=== PATIENT | female | born 1985 | race Caucasian/White ===

== ENCOUNTER 2019-11-04 09:27 | Inpatient (IN) | payer OTHER ==
[~2019-11-04] VITALS: Ht 152.4 cm; Wt 52.6 kg
--- NOTE | ~2019-11-04 | OP ---
PATIENT NAME: JESUS GUNN MEDICAL RECORD: [id number] :84 LOCATION:[id number] ADMISSION DATE:11/16/19 SURGEON: ABDON HUNT MD DATE OF OPERATION: 11/16/2019 PREOPERATIVE DIAGNOSES: 1. at 39 weeks' gestation. 2. History of prior section. 3. Advanced maternal age. POSTOPERATIVE DIAGNOSES: 1. at 39 weeks' gestation. 2. History of prior section. 3. Advanced maternal age. 4. Bladder rupture. PROCEDURES: 1. Repeat low transverse section. 2. Repair of bladder rupture. SURGEON: Abdon Hunt MD TANK BUILDER SUPERVISOR: Aurora Arredondo. ANESTHESIOLOGIST: Omega Capellan MD ANESTHETIC: Spinal. FINDINGS: Viable male infant, vertex presentation, Apgars 8 and 9, weight 3169 g. Tubes and ovaries are unremarkable. Bladder is densely adhered to the lower uterine segment. Bladder mucosa is unremarkable. SPECIMEN REMOVED: Placenta. SPECIMEN DISPOSITION: Discarded. ESTIMATED BLOOD LOSS: 750 mL. FLUIDS: 3 L of lactated Ringer's. URINE OUTPUT: 250 mL of urine prior to cystotomy. DRAINS: Johnson to gravity. COMPLICATIONS: Bladder rupture with repair. INDICATION FOR PROCEDURE: The patient is a 34-year-old G6, para 4 with 4 prior deliveries who presents to labor and delivery at 39 weeks for repeat . Risks and benefits have been described and the patient wishes to proceed. DESCRIPTION OF PROCEDURE: After informed consent is assured, the patient is taken to the operating room where anesthetic is obtained without difficulty. The patient is now prepped and draped in the usual sterile fashion. After the assessment of the anesthetic is found to be adequate, a low transverse incision OPERATIVE REPORT [id number] HEADINGJESUS Waite is made over the old scar, carried down to the underlying layer of the fascia, which is opened in the midline. The fascial opening is extended laterally. Rectus bellies are dissected free superiorly and inferiorly and then in the midline. After the peritoneum is entered and the lower segment is visualized, bladder is noted to be densely adhered to the lower uterine segment. A flap is attempted to be performed and due to the extreme adhesions abandoned. A DeLee all-purpose retractor is inserted to hold the bladder dome free of the incision. An incision site is selected 1.5 to 2 cm above the margin of the bladder adhesion to the uterus. Once the uterus is entered and the incision is extended, bag is ruptured and noted to be clear fluid. Infant is delivered out of the abdomen atraumatically. The cord is doubly clamped and cut and the infant passed to the attendant. The placenta is now removed via Crede maneuver and the uterus exteriorized, cleared of all clot and debris. Upon inspection, it appears apparent there is a large rent across the dome of the bladder. The Johnson catheter is identified. The bladder is irrigated and blood and clot removed. The hysterotomy is closed with a running stitch of chromic. Once this is performed, attention is now directed to the bladder. Further adhesions of the right and left side are taken down. The mucosa is examined and grasped. The internal margins of the bladder inspected and found to be intact. The mucosa is now closed with a running stitch of chromic. This is a horizontal mattress stitch. Once the mucosa has been reapproximated, the serosa is now closed in a similar manner. At this time using 3-0 Vicryl, a horizontal mattress is run across. There is noted to be a small rent on the right margin. This rent is approximately 1 to 1.5 cm traveling from cephalad caudally. This is closed with a separate chromic and Vicryl. A 240 mL of sterile milk solution is now placed into the bladder. The bladder is noted to be watertight with no extravasation of distention media. The Johnson catheter is now hooked back up and no draining has occurred. A Johnson is now irrigated and the bladder drains freely. Sheree is applied over the lower hysterotomy. The uterus has been returned to the abdomen. Rectus bellies are reapproximated in the midline with a loose stitch of chromic. The fascia is now closed with a running stitch of Vicryl. The sponge, lap, needle counts are correct times 2. The skin is now reapproximated with subcuticular stitch and a sterile dressing applied. Johnson catheter will remain in place for a minimum of 7 days. The patient went to the recovery area and infant to the nursery. NTS:[id number] Voice Confirmation ID: [id number] DOCUMENT ID: [id number] ABDON HUNT MD CC: [id number] DICTATION DATE: 11/16/19909 LICENSED OCCUPATIONAL THERAPIST: 11/16/192001 ADM IN [facility] [address] [id number]
[2019-11-13 11:42] LABS: BASOPHILS 0 % (0-2); EOSINOPHILS 0 % (0-7); HEMATOCRIT 42.8 % (36.0-48.0); HEMOGLOBIN 14.9 g/dL (12-16); IMMATURE GRANULOCYTES 0.3 % (0-5); MCH 34.2 pg (26.0-34.0); MCHC 34.8 g/dL (31.0-37.0); MCV 98.2 fL (80.0-100.0); MEAN PLATELET VOLUME 10.8 fL (7.4-10.4); MONOCYTES 3.3 % (2-11); NEUTROPHILS 79.4 % (40-80); PLATELET COUNT 113 10x3/uL (130-400); RBC 4.36 10x6/uL (4.00-5.40); RDW 13.3 % (11.5-14.5); WBC 3.6 10x3/uL (4.8-10.8)
[2019-11-14 07:14] LABS: RAPID PLASMA REAGIN Non Reactive (Non Reactive)
[2019-11-16] VITALS (11 sets, daily range): BP systolic 89–124; BP diastolic 58–74; Ht 152.4 cm; Wt 52.6 kg
--- NOTE | 2019-11-16 09:32 | NUR ---
RECEIVED PT FROM VIA BED TO ROOM 1274. BED LOCKED AND PLACED IN LOW POSITION. PT AWAKE. AAO X 3. VSS. HRRR WITHOUT AUDIBLE MURMUR. BBS CLEAR. BS X 4. ABDOMEN SOFT/NON-DISTENDED. FUNDUS FIRM AT U/U. RUBRA LOCHIA SMALL AMT. NO CLOTS EXPRESSED. PERIPADS CHANGED. ABDOMINAL INCISION WITH DERMABOND. NO REDNESS, SWELLING OR DRAINAGE NOTED. NEG HOMANS' SIGN. PPP. NO EDEMA NOTED TO BLE. SCDS ON BLE. PUMP ON. TUCKER TO GRAVITY DRAINING BLOODY URINE. PT STATES DR HUNT DISCUSSED KEEPING TUCKER IN FOR EXTENDED PERIOD OF TIME AFTER GOING. SR UP X 2. CALL LIGHT IN REACH.
[2019-11-16 10:18] LABS: BILIRUBIN NEGATIVE (NEGATIVE); KETONE SMALL mg/dL (NEGATIVE); NITRITE NEGATIVE (NEGATIVE); UROBILINOGEN NORMAL mg/dL (< 2)
[2019-11-16 10:20] LABS: EPITHELIAL CELLS 0-5 /hpf (0-5); WHITE CELLS - URINE 0-5 HPF (0-4)
[2019-11-16 10:21] LABS: BACTERIA 2 HPF (NONE SEEN)
--- NOTE | 2019-11-16 10:38 | NUR ---
PT SITTING UP IN BED. TALKING ON PHONE. FUNDUS FIRM AT U/U. RUBRA LOCHIA SMALL AMT. INCISION WITHOUT REDNESS, SWELLING OR DRAINAGE NOTED. ICE PACK TO INCISION. PT DENIES PAIN. STATES ABLE TO WIGGLE RIGHT FOOT. VSS. SO AT BEDSIDE.
--- NOTE | 2019-11-16 10:55 | NUR ---
PT SITTING UP IN BED. STATES C/O GAS PAIN. STATES "I HAVE THIS EVERY TIME". STATES "I THINK IT'S WORSE THAN THE INCISION PAIN". MYLICON 80 MG GIVEN PO ORDERED.
--- NOTE | 2019-11-16 11:40 | NUR ---
PT C/O PAIN OF "2" ON 0-10 PAIN SCALE. TORADOL 30 MG GIVEN SIVP OVER 2 MINUTES. PT INSTRUCTED ON MED. VERBALIZES UNDERSTANDING.
--- NOTE | 2019-11-16 12:23 | NUR ---
CLEAR LIQUID DIET SERVED. PT DENIES FURTHER PAIN. STATES PAIN MED RELIEVING PAIN. DENIES C/O OR NEEDS.
--- NOTE | 2019-11-16 13:30 | NUR ---
DR HUNT TO PT ROOM FOR ROUNDING, GIVES ORDER TO ADVANCE PT TO REGULAR DIET AND PO MEDS IF ABLE TO TOLERATE. WILL NOTIFY PRIMARY RN.
--- NOTE | 2019-11-16 13:30 | NUR ---
FUNDUS FIRM AT U/U. RUBRA LOCHIA MOD AMT. NO CLOTS NOTED. PERIPADS CHANGED. FRESH ICE PACK TO INCISION. INCISION WITHOUT REDNESS, SWELLING OR DRAINAGE NOTED. REGULAR DIET SERVED. PT DENIES NAUSEA.
--- NOTE | 2019-11-16 13:40 | NUR ---
PT C/O INCISIONAL PAIN/CRAMPING OF "6-7" ON 0-10 PAIN SCALE. PERCOCET 10/325 GIVEN PO ORDERED. PT PROVIDED CRACKERS. INSTRUCTED ON MED. VERBALIZES UNDERSTANDING.
--- NOTE | 2019-11-16 14:10 | NUR ---
INTRODUCED SELF TO PT. NURSE TO PROVIDE CARE FOR PT. AFTER TRANSFER TO ROOM 1257. DISCUSSED CONTINUED PLAN OF CARE WITH PT. AND SIGNIFICANT OTHER AT BEDSIDE. PT. WITH LR INFUSING IN 20 G. IV CATH IN RIGHT ARM. NO SIGNS OF INFILTRATION NOTED AT THIS TIME. SALINE LOCKED IV FOR TRANSFER TO NEW ROOM. PT. TRANSFERRED VIA BED TO ROOM 1257. SIGNIFICANT OTHER ASSISTED WITH TRANSFERRING AND BELONGINGS TO NEW ROOM.
--- NOTE | 2019-11-16 14:25 | NUR ---
PT. FINISHED EATING LUNCH TRAY AT THIS TIME. INITIAL ASSESSMENT COMPLETED. SEE FLOWSHEET. FUNDUS FIRM, MIDLINE, U/1 WITH MODERATE LOCHIA RUBRA NOTED AT THIS TIME. BOWEL SOUNDS ACTIVE X 4. PT. DENIES ANY NAUSEA AT THIS TIME AND IS TOLERATING REGULAR DIET AND ORAL PAIN MEDICATION ORDERED. RESTARTED PT.'S IV WITH LR AT 100 ML/HR THROUGH 20G. IV IN RIGHT ARM. BREATH SOUNDS CLEAR. PT. REINSTRUCTED REGARDING T/C/DB EVERY 2 HOURS AND INCENTIVE SPIROMETER USE. PT. VERBALIZES UNDERSTANDING. 16 FR. TUCKER CATH INTACT AND DRAINING BLOODY URINE INTO BAG. REPORT RECEIVED THAT PT. WILL BE DISCHARGED HOME WITH LEG BAG MOST LIKELY. PT. REMAINS AAOX3. WILL CONT. TO MONITOR.
--- NOTE | 2019-11-16 15:46 | NUR ---
ANCEF 2 GM INFUSION COMPLETE. IV SALINE LOCKED AT THIS TIME ORDERED.
--- NOTE | 2019-11-16 17:35 | NUR ---
PT SITTING UP IN BED. C/O ABDOMINAL CRAMPING. TORADOL 10 MG AND PERCOCET 10/325 GIVEN PO ORDERED. PT ALSO GIVEN MYLICON 80 MG CHEW TAB PO ORDERED. I/O COMPLETED.
--- NOTE | 2019-11-16 18:11 | NUR ---
PT OOB AND AMB TO BR. PANTIES AND PAD ON. PT AMBULATES IN ROOM AT THIS TIME. STATES TOLERATING ACTIVITY WELL.
--- NOTE | 2019-11-16 19:20 | NUR ---
SHIFT ASSESSMENT COMPLETED, SEE FLOWSHEET.
--- NOTE | 2019-11-16 19:30 | NUR ---
PT SITTING UP IN BED, SANDWICH TRAY,JELLO AND FRESH ICE WATER PROVIDED TO PATIENT, COFFEE PROVIDED TO FOB. BED LOCKED IN LOW POSITION, SIDE RAILS UPX2, CALL LYNN AND TRAY TABLE IN REACH. NO FURTHER NEEDS IDENTIFIED. WILL CONTINUE TO MONITOR.
--- NOTE | 2019-11-16 20:56 | NUR ---
PATIENT LYING IN BED WITH EYES CLOSED, EASILY AROUSED TO VERBAL STIMULI. PT DENIES NEEDS. WILL CONTINUE TO MONITOR
--- NOTE | 2019-11-16 21:50 | NUR ---
PT LYING IN BED, DENIES NEEDS. SIGNIFICANT OTHER REMAINS AT BEDSIDE FOR SUPPORT. WILL CONTINUE TO MONITOR.
--- NOTE | 2019-11-16 23:35 | NUR ---
ANCEF 2GRAMS IVPB STARTED VIA ALARIS PUMP AT THIS TIME PER MD ORDERS. ICE WATER PROVIDED FOR PATIENT PER REQUEST. NO FURTHER NEEDS IDENTIFIED. WILL CONTINUE TO MONITOR.
[2019-11-17 00:30] VITALS: BP 96/43
--- NOTE | 2019-11-17 00:30 | NUR ---
MEDICATIONS ADMINISTERED PER MD ORDERS SEE EMAR
--- NOTE | 2019-11-17 00:35 | NUR ---
PT RESTING QUIETLY WITH EYES CLOSED. IV FLUSHED WITH 10ML NS AND SALINE LOCKED. VITAL SIGNS TAKEN, ICE WATER PROVIDED. NO FURTHER NEEDS IDENTIFIED. WILL CONTINUE TO MONITOR.
--- NOTE | 2019-11-17 02:30 | NUR ---
PT RESTING QUIETLY, NO NEEDS IDENTIFIED. WILL CONTINUE TO MONITOR.
--- NOTE | 2019-11-17 04:22 | NUR ---
ADMINISTERED PERCOCET 10/325MG AND SIMETHICONE 80 MG PO PER PT REQUEST AND MD ORDERS. SEE EMAR
[2019-11-17 06:16] LABS: HEMATOCRIT 33.5 % (36.0-48.0); MCH 32.4 pg (26.0-34.0); MCHC 32.8 g/dL (31.0-37.0); MCV 98.5 fL (80.0-100.0); MEAN PLATELET VOLUME 10.4 fL (7.4-10.4); RBC 3.4 10x6/uL (4.00-5.40); RDW 13.4 % (11.5-14.5); WBC 5.3 10x3/uL (4.8-10.8)
[2019-11-17 07:30] VITALS: BP 100/53
--- NOTE | 2019-11-17 07:30 | NUR ---
PT SITTING UP IN HIGH HANNA'S POSITION. AAO X 3. VSS. HRRR WITHOUT AUDIBLE MURMUR. BBS CLEAR. BS X 4. ABDOMEN SOFT/SLIGHTLY DISTENDED. PT STATES PASSING VERY LITTLE GAS. FUNDUS FIRM AT U/U. RUBRA LOCHIA SMALL AMT. NO CLOTS OR HEAVY BLEEDING PER PT STATES. ABDOMINAL INCISION WITH DERMABOND WITHOUT REDNESS, SWELLING OR DRAINAGE NOTED. NEG HOMANS' SIGN. PPP. NO EDEMA NOTED TO BLE. SL TO LEFT AND RIGHT FOREARMS. SITES CLEAR. PT STATES MILD PAIN. DENIES NEED FOR FURTHER PAIN MEDICATION. REQUESTS AND RECEIVES ICE WATER. TUCKER TO GRAVITY DRAINING BLOODY URINE. SR UP X 2. CALL LIGHT IN REACH.
--- NOTE | 2019-11-17 07:44 | NUR ---
DR HUTN VISITS WITH PT. STATES MAY DC PT THIS AFTERNOON.
--- NOTE | 2019-11-17 08:59 | NUR ---
PT IN BATHROOM. DENIES C/O PAIN OR NEEDS.
[2019-11-17] MEDS ORDERED: PERCOCET 7.5/321 TAB PO (11:09)
[2019-11-17] MEDS ORDERED: IBUPROFEN800 MG PO (11:10)
[2019-11-17 13:35] VITALS: BP 104/56
--- NOTE | 2019-11-17 13:37 | NUR ---
PT SITTING UP IN BED. STATES FEELING SOME BETTER. VSS. DENIES HEAVY BLEEDING OR PASSING CLOTS. STATES PASSING GAS NOW. DENIES BM YET. STATES PLANS ON STAYING UNTIL TOMORROW. DENIES NEEDS AT THIS TIME.
--- NOTE | 2019-11-17 16:00 | NUR ---
PT INSTRUCTED ON TUCKER CATH CARE. VERBALIZES UNDERSTANDING. 1550 ML OF BLOOD-TINGED URINE EMPTIED FROM BAG.
--- NOTE | 2019-11-17 16:23 | NUR ---
PT C/O H/A AND GAS PAIN OF "5-6" ON 0-10 PAIN SCALE. PERCOCET 10/325 AND MYLICON CHEW TAB 80 MG GIVEN PO ORDERED. INSTRUCTED ON MEDS. VERBALIZES UNDERSTANDING.
--- NOTE | 2019-11-17 19:15 | NUR ---
REPORT GIVEN BY MALINI STERLING
[2019-11-17 20:00] VITALS: BP 109/34
--- NOTE | 2019-11-17 20:15 | NUR ---
ASSESSMENT COMPLETED. PT IS SITTING UP IN BED TRYING TO FEED THE BABY. PT HAS NO PAIN C/O AT THIS TIME. SHE HAS BEEN UP WALKING IN HER ROOM. HEART SOUNDS REGULAR, LUNGS SOUND CLEAR, BOWEL SOUNDS HEARD. FUNDUS IS FIRM. BONDING WELL WITH THE BABY WELL THE FATHER. THE IV IN THE LEFT FORARM WAS REMOVED. PT STILL HAS A SL IN THE RIGHT WRIST AREA. SHE HAS NO C/O OR NEEDS AT THIS TIME AFTER SHE GOT A FRESH GLASS OF WATER. CALL LIGHT NEAR, SIDERAILS UP, AND IS AT BEDSIDE
--- NOTE | 2019-11-17 21:00 | NUR ---
PT RESTING WELL. TOWELS WERE TAKEN TO THE ROOM PER REQUEST.
--- NOTE | 2019-11-17 22:00 | NUR ---
PT HOLDING BABY. SHE ASKED FOR A CUP OF GRAPE JUICE THAT WAS DELIVERED TO HER. SHE SAYS THAT SHE IS IN A LITTLE BIT OF PAIN BUT SHE WILL CALL WHEN SHE WANTS PAIN MEDS.
--- NOTE | 2019-11-18 00:04 | NUR ---
PT C/O PAIN. SHE HAD TORADOL SCHEDULED AND SHE GOT A PERCOCET 10 BOTH PO. NO OTHER C/O AND NO NEEDS AT THIS TIME.
--- NOTE | 2019-11-18 02:00 | NUR ---
PT IS RESTING QUIETLYL IN BED HOLDING HER BABY.
--- NOTE | 2019-11-18 03:04 | NUR ---
PT CALL LIGHT WENT OFF BY ACCIDENT. SHE HAS NO C/O OR NEEDS NOW
--- NOTE | 2019-11-18 04:00 | NUR ---
PT IS IN BED SLEEPING.
--- NOTE | 2019-11-18 06:06 | NUR ---
PT IS SITTING UP HOLDING THE BABY. SHE WAS GIVEN HER SCHEDULED TORADOL AND SHE REQUESTED PAIN MEDS MOSTLY FOR A HEADACHE. SHE RATES HER PAIN A 5. 800 ML EMPTIED OUT OF HER TUCKER CATHETER. IT WAS A BLOOD TINGED DARK DIANA COLOR WITH A STRONG ODOR. PT HAS NOT SLEPT MUCH TONIGHT.
--- NOTE | 2019-11-18 07:00 | NUR ---
REPORT RECEIVED FROM Maryuri FALL RN.
--- NOTE | 2019-11-18 08:25 | NUR ---
TO ROOM FOR ASSESSMENT. PT SITTING UP IN CHAIR. PT AMBULATED TO BED WITHOUT DIFFICULTY FOR ASSESSMENT. LUNGS CLEAR BILAT. FUNDUS FIRM AT UMBILICUS, MIDLINE. INCISION IS CDI WITH DERMABOND. LOCHIA IS SMALL/SCANT AND RUBRA. BOWEL SOUNDS PRESENT X4. PT STATES SHE HAS BEEN PASSING GAS. TUCKER CATHETER DRAINING LIGHT, CLEAR URINE TO GRAVITY WITHOUT DIFFICULTY. LINE IS SECURED TO RIGHT LEG WITHOUT KINKS IN TUBING, TUCKER BAG SECURED TO BED BELOW BLADDER. PT. C/O HEADACHE, BUT STATES SHE "GETS HEADACHES AFTER ALL MY C-SECTIONS". SALINE LOCK IN RIGHT FOREARM D/C'D. CATHETER INTACT. BANDAGE APPLIED. PT. READY TO SHOWER. DISCUSSED TUCKER CARE AND CLEANING OF ABD. INCICISION IN SHOWER. STATES UNDERSTANDING. NO OTHER QUESTIONS OR CONCERNS AT THIS TIME.
[2019-11-18 08:30] VITALS: BP 96/54
--- NOTE | 2019-11-18 10:30 | NUR ---
PT REQUESTS PAIN MED FOR HEADACHE. PERCOCET GIVEN.
--- NOTE | 2019-11-18 11:36 | NUR ---
PT CONT TO COMPLAIN OF H/A. STATES PERCOCET HAS HELPED 'A LITTLE' BUT STILL RATES PAIN 6. SCHEDULED TORADOL GIVEN. WILL REASSESS IN 1 HOUR.
--- NOTE | 2019-11-18 14:50 | NUR ---
D/C EDUCATION AND INSTRUCTIONS GIVEN TO PATIENT. TUCKER BAG CHANGED TO LEG BAG. INSTRUCTIONS ON TUCKER CARE GIVEN TO PATIENT. PATIENT VERBALIZED UNDERSTANDING AND AGREEMENT. PATIENT TAKEN TO PRIVATE CAR DRIVEN BY VIA WHEELCHAIR.
== END 2019-11-18 15:04 | disposition home or self-care (01) | DRG 787 ==
LOC: D.LD 11-16 06:12
PROVIDERS: ADMIT Obstetrics & Gynecology; ATTEND Obstetrics & Gynecology
PROC: 0TQB0ZZ Repair Bladder, Open Approach (ICD-10-PCS; 2019-11-16)
PROC: 10D00Z1 Extraction of Products of Conception, Low, Open Approach (ICD-10-PCS; principal; 2019-11-16 07:00)
DX: O34.211 Maternal care for low transverse scar from previous cesarean delivery (principal); O71.5 Other obstetric injury to pelvic organs; Z3A.39 39 weeks gestation of pregnancy; Z37.0 Single live birth; N32.89 Other specified disorders of bladder